=== PATIENT | female | born 1965 | race Caucasian/White ===

== ENCOUNTER 2017-11-11 12:51 | Emergency (ER) | payer MEDICAID ==
[2017-11-11 18:01] LABS: ADD MAN DIFF? NO
[2017-11-11 18:03] LABS: BASOPHIL # 0.1 10^3/ul (0.0-0.1); EOSINOPHILS # 0.8 10^3/ul (0.0-0.5); EOSINOPHILS % 6.7 % (0.0-7.0); HEMATOCRIT 44.7 % (37.0-47.0); HEMOGLOBIN 15.4 g/dl (12.0-16.0); LYMPHOCYTES # 4.6 10^3/ul (0.8-2.9); LYMPHOCYTES % 39.7 % (15.0-51.0); MEAN CORPUSCULAR HGB CONC 34.5 g/dl (32.0-37.0); MEAN CORPUSCULAR VOLUME 89.9 fl (82.0-101.0); MEAN PLATELET VOLUME 9.9 fl (7.4-10.4); MONOCYTE # 0.5 10^3/ul (0.3-0.9); MONOCYTES % 4.2 % (0.0-11.0); NEUTROPHIL # 5.6 10^3/ul (1.6-7.5); NEUTROPHILS % 48.1 % (39.0-77.0); PLATELET COUNT 474 10^3/UL (140-415); RED BLOOD COUNT 4.97 10^6/ul (4.20-5.40); RED CELL DISTRIBUTION WIDTH 12.8 % (11.5-14.5)
[2017-11-11 18:03] LABS: WHITE BLOOD COUNT 11.6 10^3/ul (4.8-10.8)
[2017-11-11 18:36] LABS: ALANINE AMINOTRANSFERASE 71 IU/L (13-69); ALBUMIN 4.6 g/dl (3.3-4.9); ALBUMIN/GLOBULIN RATIO 1.24; ALKALINE PHOSPHATASE 148 IU/L (42-121); ANION GAP 13 (8-16); ASPARTATE AMINO TRANSFERASE 49 IU/L (15-46); BLOOD UREA NITROGEN 14 mg/dl (7-20); CALCIUM 10.1 mg/dl (8.4-10.2); CARBON DIOXIDE 31 mmol/L (21-31); CHLORIDE 106 mmol/L (97-110); CREATININE 0.74 mg/dl (0.44-1.00); GLUCOSE 99 mg/dl (70-220); POTASSIUM 4.4 mmol/L (3.5-5.1); SODIUM 146 mmol/L (135-144); TOTAL PROTEIN 8.3 g/dl (6.1-8.1)
[2017-11-11 18:45] LABS: TROPONIN-I < 0.012 ng/ml (0.00-0.12)
== END 2017-11-11 20:04 | disposition home or self-care (01) ==
LOC: FTE 12:51
DX: N64.4 Mastodynia (principal); J45.909 Unspecified asthma, uncomplicated
CPT/HCPCS: 36415; 71045; 76642; 80053; 84484; 85025; 93005; 99285-25